=== PATIENT | female | born 1995 | race Hispanic/Latino ===

== ENCOUNTER 2018-05-07 08:15 | Emergency (ER) | payer OTHER ==
[~2018-05-07] VITALS: Ht 160 cm; Wt 51.4 kg
[2018-05-07] MEDS ORDERED: diphenhydrAMINE INJ 50MG/ML VIAL (J1200) IV ONE (09:00)
[2018-05-07] MEDS ORDERED: KETOROLAC 30 MG/ML VIAL (J1885) IV ONE (09:00)
[2018-05-07] MEDS ORDERED: ONDANSETRON 4MG/2ML VIAL (J2405) IV ONE (09:00)
[2018-05-07] MEDS ORDERED: NS 1,000 ML IV ONE (09:00)
[2018-05-07] MEDS ORDERED: SILVER SULFADIAZINE 1% CR 50 GM JAR TOP ONE (09:00)
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
[2018-05-07] MEDS ORDERED: SILV1CRE60 TOP (10:21)
[2018-05-07] MEDS ORDERED: ONDA4TAB6 PO (10:21)
[2018-05-07] MEDS ORDERED: KETO10TAB PO (10:21)
[2018-05-07] MEDS ORDERED: NORCOTAB PO (10:21)
[2018-05-07 10:39] VITALS: BP 106/60
== END 2018-05-07 10:45 | disposition home or self-care (01) ==
LOC: M ED 08:15
DX: S06.0X0A Concussion without loss of consciousness, initial encounter (principal); T22.212A Burn of second degree of left forearm, initial encounter; X12.XXXA Contact with other hot fluids, initial encounter; Y92.89 Other specified places as the place of occurrence of the external cause; F17.200 Nicotine dependence, unspecified, uncomplicated; Z88.0 Allergy status to penicillin
CPT/HCPCS: 16000; 70450; 96374; 96375; 99284; J1200; J1885; J2405

== ENCOUNTER 2018-07-04 14:08 | Emergency (ER) | payer OTHER ==
[~2018-07-04] VITALS: Ht 160 cm; Wt 57.7 kg
[~2018-07-04 14:08] MED LIST: KETO10TAB PO; NORCOTAB PO; ONDA4TAB6 PO; SILV1CRE60 TOP
[2018-07-04] MEDS ORDERED: MELA3TAB49 PO (14:14)
[2018-07-04] MEDS ORDERED: ONDANSETRON 4MG/2ML VIAL (J2405) IV ONE (14:45)
[2018-07-04 14:49] LABS: BASO % 0.3 % (0.0-1.0); EOS # 0.1 10^3/uL (0.0-0.50); EOS % 1.2 % (0.0-3.0); HEMATOCRIT 41.7 % (36.0-47.0); HEMOGLOBIN 14.4 g/dl (12.0-15.5); LYMPH # 1.5 10^3/uL (1.5-6.5); LYMPH % 21.9 % (24.0-44.0); MEAN CORPUSCULAR HEMOGLOBIN 33.9 pg (27.0-33.0); MEAN CORPUSCULAR HGB CONC 34.5 g/dl (32.0-36.5); MEAN CORPUSCULAR VOLUME 98.1 fl (80.0-96.0); MONO # 0.5 10^3/uL (0.0-0.8); MONO % 7.3 % (0.0-5.0); NEUTROPHILS # 4.7 10^3/uL (1.8-7.7); PLATELET COUNT, AUTOMATED 169 10^3/uL (150-450); RED BLOOD COUNT 4.25 10^6/uL (4.00-5.40); WHITE BLOOD COUNT 6.9 10^3/uL (4.0-10.0)
[2018-07-04 15:13] LABS: BLOOD UREA NITROGEN 16 MG/DL (7-18); CALCIUM LEVEL 8.7 MG/DL (8.5-10.1); CARBON DIOXIDE LEVEL 26 MEQ/L (21-32); CHLORIDE LEVEL 108 MEQ/L (98-107); CREATININE FOR GFR 0.91 MG/DL (0.55-1.30); GLOMERULAR FILTRATION RATE > 60.0 (>60); GLUCOSE, FASTING 93 MG/DL (70-100); POTASSIUM SERUM 4.5 MEQ/L (3.5-5.1); SODIUM LEVEL 141 MEQ/L (136-145)
[2018-07-04 15:23] LABS: HCG, SERUM QUALITATIVE NEGATIVE (NEGATIVE)
[2018-07-04] MEDS ORDERED: ISOVUE-370 76% 125ML VIAL (Q9967 PER ML) As Ordered ONE (16:12)
--- NOTE | 2018-07-04 16:35 | REP ---
Pelvic sonography: History: Nausea with pelvic pain. Left back pain. Findings: Transabdominal and transvaginal scanning are performed. Uterine dimensions are normal at 7.1 x 3.0 x 3.9 cm. Endometrial echo 0.2 cm thick. No focal uterine mass is seen. No free fluid is noted. Filled urinary bladder emerson are smooth. Normal ovaries are seen bilaterally. Right ovarian dimensions are 2.7 x 2.0 x 2.8 cm. There is a 1.1 cm follicle cyst in the right ovary. The left ovary measures 2.5 x 1.4 x 1.8 cm. It has a normal morphology. Doppler flow is normal both ovaries. Resistive indices are 0.33 on the right and 0.48 on the left. Impression: Normal pelvic sonography. Electronically Signed by Matt Joshi MD 07/04/2018 05:28 P
[2018-07-04] MEDS ORDERED: ONDA4TAB6 PO ×2 (16:57→17:19)
[2018-07-04 17:21] VITALS: BP 102/65
--- NOTE | 2018-07-04 17:25 | REP ---
REASON: Lower abdominal pain nausea and vomiting. PRIORS: None. CONTRAST: 100 mL Isovue-370. The lung bases are clear. The liver, gallbladder, spleen, pancreas, adrenal glands, and kidneys are within normal limits. The bowel loops and the mesenteries appear to be within normal limits. All seen in a limited fashion due to the lack of the administered oral bowel preparatory contrast. The abdominal aorta and periaortic regions are within normal limits. There is no free fluid or free air in the abdomen. The appendix is well visualized and shows no evidence of an abnormality. CT PELVIS: There is no free fluid or free air. There is no mass or adenopathy. The bowel loops appear to be within normal limits. Bone window technique throughout the exam shows the osseous structures to be within normal limits. IMPRESSION: CT findings are within normal limits. Electronically Signed by Hiram Johnson DO 07/04/2018 05:40 P
== END 2018-07-04 17:10 | disposition home or self-care (01) ==
LOC: M ED 14:08
DX: R11.2 Nausea with vomiting, unspecified (principal); Z88.0 Allergy status to penicillin; F17.210 Nicotine dependence, cigarettes, uncomplicated
CPT/HCPCS: 36415; 74177; 76830; 76856; 80048; 81001; 81025; 84703; 85025; 86850; 86900; 86901; 93976; 96374; 99284; J2405; Q9967

== ENCOUNTER 2019-06-08 04:52 | Emergency (ER) | payer OTHER ==
[~2019-06-08] VITALS: Ht 160 cm; Wt 67.2 kg
[~2019-06-08 04:52] MED LIST changes: +HYDR-3715 PO; +MELA3TAB49 PO; -NORCOTAB PO
[2019-06-08] MEDS ORDERED: AMIT75TA (04:57)
[2019-06-08] MEDS ORDERED: ACETAMINOPHEN 325 MG TAB PO ONE (07:00)
[2019-06-08] MEDS ORDERED: IPRATROPIUM 0.5MG/ALBUTEROL 2.5MG INH SOL UD 3ML (DUONEB)(J7620) NEB ONE (07:00)
[2019-06-08 07:11] LABS: INFLUENZA A AMPLIFICATION POSITIVE (NEGATIVE); INFLUENZA B AMPLIFICATION NEGATIVE (NEGATIVE)
[2019-06-08] MEDS ORDERED: OSELTAMIVIR PHOSPHATE 75 MG CAP (TAMIFLU) PO ONE (07:30)
[2019-06-08] MEDS ORDERED: OSEL75CA PO (07:31)
[2019-06-08 07:43] VITALS: BP 127/68
== END 2019-06-08 07:58 | disposition home or self-care (01) ==
LOC: M ED 04:52
DX: J09.X2 Influenza due to identified novel influenza A virus with other respiratory manifestations (principal); G40.909 Epilepsy, unspecified, not intractable, without status epilepticus; Z87.09 Personal history of other diseases of the respiratory system; Z79.899 Other long term (current) drug therapy; Z88.0 Allergy status to penicillin

== ENCOUNTER 2019-09-03 06:21 | Emergency (ER) | payer OTHER ==
[~2019-09-03] VITALS: Ht 160 cm; Wt 64.6 kg
[~2019-09-03 06:21] MED LIST changes: +AMIT75TA; +OSEL75CA PO
[2019-09-03] MEDS ORDERED: PREN1CHW6 PO (06:39)
[2019-09-03 07:58] LABS: BASO % 0.3 % (0.0-1.0); EOS % 0.4 % (0.0-3.0); HEMATOCRIT 39.8 % (36.0-47.0); HEMOGLOBIN 13.7 g/dl (12.0-15.5); LYMPH # 0.9 10^3/uL (1.5-5.0); LYMPH % 12.8 % (24.0-44.0); MEAN CORPUSCULAR HEMOGLOBIN 32.5 pg (27.0-33.0); MEAN CORPUSCULAR HGB CONC 34.4 g/dl (32.0-36.5); MEAN CORPUSCULAR VOLUME 94.3 fl (80.0-96.0); MONO # 0.6 10^3/uL (0.0-0.8); MONO % 8.1 % (0.0-5.0); NEUTROPHILS # 5.4 10^3/uL (1.5-8.5); PLATELET COUNT, AUTOMATED 153 10^3/uL (150-450); RED BLOOD COUNT 4.22 10^6/uL (4.00-5.40); WHITE BLOOD COUNT 6.9 10^3/uL (4.0-10.0)
[2019-09-03 08:17] LABS: BLOOD UREA NITROGEN 8 MG/DL (7-18); CALCIUM LEVEL 8.5 MG/DL (8.5-10.1); CARBON DIOXIDE LEVEL 24 MEQ/L (21-32); CHLORIDE LEVEL 106 MEQ/L (98-107); GLOMERULAR FILTRATION RATE > 60.0 (>60); GLUCOSE, FASTING 81 MG/DL (70-100); HCG, SERUM QUANTITATIVE 137244 MIU/ML; SODIUM LEVEL 137 MEQ/L (136-145)
--- NOTE | 2019-09-03 08:53 | REP ---
Emergency first trimester obstetric sonography: History: Vaginal bleeding. Findings: Transabdominal scanning demonstrates a single living intrauterine gestation. Embryonic pole measures 12 mm in crown-rump length. This corresponds with a gestational age estimate of 7 weeks 2 days. heart rate is recorded at 149 beats per minute. No subchorionic hemorrhage is appreciated. No extrauterine abnormalities observed. Impression: Viable single intrauterine gestation is 7 weeks 2 days by crown-rump length. JOSUE by sonography April 19, 2020. No complication is identified. Electronically Signed by Matt Joshi MD 09/03/2019 08:45 A
[2019-09-03] MEDS ORDERED: MACR100C43 PO (09:12)
[2019-09-03] MEDS ORDERED: METR0.7533 PV (09:35)
[2019-09-03] MEDS ORDERED: FLAG500T PO (09:39)
[2019-09-03 09:42] VITALS: BP 118/60
[2019-09-03] MEDS ORDERED: metroNIDAZOLE (FLAGYL) 500 MG TAB PO ONE (09:45)
[2019-09-03] MEDS ORDERED: METOCLOPRAMIDE 10 MG TAB PO ONE (09:45)
[2019-09-03 10:56] LABS: CHLAMYDIA DNA AMPLIFICATION POSITIVE (NEGATIVE); GC DNA AMPLIFICATION NEGATIVE (NEGATIVE)
[2019-09-03] MEDS ORDERED: AZIT500T5 PO (12:21)
--- NOTE | 2019-09-03 12:28 | ED PDOC ---
Post-Departure Follow-Up Called pt and notified of positive Chlamydia result. Sent in prescription to the pharmacy. Patient expressed understanding. Advised to continue pelvic rest. BOBBY BROOKS PA-C September 03, 2019 12:28
== END 2019-09-03 09:45 | disposition home or self-care (01) ==
LOC: M ED 06:21
DX: O23.591 Infection of other part of genital tract in pregnancy, first trimester (principal); O23.41 Unspecified infection of urinary tract in pregnancy, first trimester; O98.311 Other infections with a predominantly sexual mode of transmission complicating pregnancy, first trimester; Z3A.01 Less than 8 weeks gestation of pregnancy; Z87.440 Personal history of urinary (tract) infections; Z88.0 Allergy status to penicillin; Z79.899 Other long term (current) drug therapy

== ENCOUNTER 2019-09-28 16:34 | Emergency (ER) | payer OTHER ==
[~2019-09-28] VITALS: Ht 162.6 cm; Wt 63.9 kg
[~2019-09-28 16:34] MED LIST changes: +AZIT500T5 PO; +FLAG500T PO; +MACR100C43 PO; +METR0.7533 PV; +PREN1CHW6 PO
[2019-09-28 17:29] LABS: BASO % 0.3 % (0.0-1.0); EOS # 0.1 10^3/uL (0.0-0.5); EOS % 0.8 % (0.0-3.0); HEMATOCRIT 35.2 % (36.0-47.0); HEMOGLOBIN 12.1 g/dl (12.0-15.5); LYMPH # 1.3 10^3/uL (1.5-5.0); LYMPH % 14.4 % (24.0-44.0); MEAN CORPUSCULAR HEMOGLOBIN 32.5 pg (27.0-33.0); MEAN CORPUSCULAR HGB CONC 34.4 g/dl (32.0-36.5); MEAN CORPUSCULAR VOLUME 94.6 fl (80.0-96.0); MONO # 0.6 10^3/uL (0.0-0.8); MONO % 6.5 % (0.0-5.0); NEUTROPHILS # 7.1 10^3/uL (1.5-8.5); NEUTROPHILS % 77.5 % (36.0-66.0); PLATELET COUNT, AUTOMATED 146 10^3/uL (150-450); RED BLOOD COUNT 3.72 10^6/uL (4.00-5.40); WHITE BLOOD COUNT 9.1 10^3/uL (4.0-10.0)
[2019-09-28 17:57] LABS: BLOOD UREA NITROGEN 9 MG/DL (7-18); CALCIUM LEVEL 8.4 MG/DL (8.5-10.1); CARBON DIOXIDE LEVEL 23 MEQ/L (21-32); CHLORIDE LEVEL 110 MEQ/L (98-107); CREATININE FOR GFR 0.58 MG/DL (0.55-1.30); GLOMERULAR FILTRATION RATE > 60.0 (>60); GLUCOSE, FASTING 119 MG/DL (70-100); HCG, SERUM QUANTITATIVE 105386 MIU/ML; POTASSIUM SERUM 3.5 MEQ/L (3.5-5.1); SODIUM LEVEL 141 MEQ/L (136-145)
[2019-09-28 19:14] VITALS: BP 117/60
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
== END 2019-09-28 20:20 | disposition home or self-care (01) ==
LOC: M ED 16:34
DX: O9A.311 Physical abuse complicating pregnancy, first trimester (principal); O20.8 Other hemorrhage in early pregnancy; Z3A.10 10 weeks gestation of pregnancy; Z79.899 Other long term (current) drug therapy; Z88.0 Allergy status to penicillin

== ENCOUNTER 2019-12-30 14:51 | Outpatient (CLI) | payer OTHER ==
[~2019-12-30] VITALS: Ht 160 cm; Wt 71.2 kg
[~2019-12-30 14:51] MED LIST changes: +magnesium
[2019-12-30] MEDS ORDERED: MAPA500T2 PO (15:13)
[2019-12-30] MEDS ORDERED: B-COTAB10 PO (15:22)
--- NOTE | 2019-12-30 16:09 | IPNPDOC ---
Obstetrical Progress Note Date of Service Dec 30, 2019 Subjective 22yo at 24+1 presents to L+D for back pain that is constant and started 2d ago but is worse today. It is worse when she needs to or is urinating. She endorsed blood in her urine, she is unsure if it is vaginal bleeding. She denied other symptoms like n/v/d, cp, sob, [place], visual changes, abd pain, f/c. Assessment Heart Rate (FHR): 135 Variability: Moderate Accelerations: Positive Decelerations: None Heart Rate Tracing: Category I Tocometer Contractions: No Sterile Vaginal Examination Dilation: None Station: -3 Cervical Consistency: Firm Cervical Position: Posterior Assessment and Plan Additional Comments 22yo at 24+1 presents to +D for back pain associated with urination and vaginal bleeding vs blood in her urine. VS normal. Doptones 135bpm. No contractions. On exam she had thick white vaginal discharge, her cervix was friable, her SVE was C/T/H. KITTY/WP were positive for pseudohyphae. UA was contaminated but still had a significant amount of WBC and bacteria. Given her urinary frequency and pain association with voiding will treat for UTI. UCx is pending. [facility] - fluconazole given while in triage for vaginal candidiasis - macrobid prescribed for UTI - return precautions given for non-resolution of symptoms, worsening of symptoms, fever, or other concerning symptoms - routine OB return precautions given - patient otherwise to follow up at her [facility] Physical Examination no CVA tenderness General Exam: Positive: Alert, No Acute Distress ENT EXAM: Positive: Atraumatic Neck Exam: Positive: Supple Chest Exam: Positive: Other (no increased WOB) Heart Exam: Positive: Rate Normal Abdomen Exam: Positive: Soft (gravid, non-tender) Female Exam: Positive: Nl Ext Genitalia, Normal Cervical Exam Psych Exam: Positive: Mental status NL SANTINO SAMANIEGO DO Dec 30, 2019 16:09
[2019-12-30] MEDS ORDERED: FLUCONAZOLE 50MG TABLET PO ONE (16:15)
[2019-12-30 16:30] LABS: APPEARANCE, URINE HAZY (CLEAR); BACTERIA, URINE AUTO 1+ (NEGATIVE); BILIRUBIN, URINE AUTO NEGATIVE (NEGATIVE); BLOOD, URINE BLOOD NEGATIVE (NEGATIVE); COLOR, URINE YELLOW (YELLOW); GLUCOSE, URINE (UA) AUTO NEGATIVE (NEGATIVE); KETONE, URINE AUTO NEGATIVE (NEGATIVE); LEUKOCYTE ESTERASE, URINE AUTO 2+ (NEGATIVE); MUCUS, URINE SMALL (NEGATIVE); NITRITE, URINE AUTO NEGATIVE (NEGATIVE); PROTEIN, URINE AUTO NEGATIVE (NEGATIVE); RBC, URINE AUTO 2 /HPF (0-3); SPECIFIC GRAVITY URINE AUTO 1.014 (1.002-1.035); SQUAMOUS EPITHELIAL CELL UR AU 4 /HPF (0-6); UROBILINOGEN, URINE AUTO 0.2 mg/dL (0.0-2.0); WBC, URINE AUTO 10 /HPF (0-3)
[2019-12-30 18:07] LABS: CHLAMYDIA DNA AMPLIFICATION NEGATIVE (NEGATIVE); GC DNA AMPLIFICATION NEGATIVE (NEGATIVE)
== END 2019-12-30 17:08 | disposition home or self-care (01) ==
LOC: M LDO 14:51
PROVIDERS: ATTEND Obstetrics & Gynecology
DX: O23.42 Unspecified infection of urinary tract in pregnancy, second trimester (principal); B37.3 Candidiasis of vulva and vagina
CPT/HCPCS: 81001; 87086; 87661; G0378; G0463

== ENCOUNTER 2020-03-04 11:47 | Outpatient (CLI) | payer OTHER ==
[~2020-03-04] VITALS: Ht 160 cm; Wt 76.5 kg
[~2020-03-04 11:47] MED LIST changes: +B-COTAB10 PO; +MAPA500T2 PO
[2020-03-04 12:00] VITALS: BP 104/71
== END 2020-03-04 12:40 | disposition home or self-care (01) ==
LOC: M LDO 11:47
PROVIDERS: ATTEND Obstetrics & Gynecology
DX: O26.893 Other specified pregnancy related conditions, third trimester (principal); R10.9 Unspecified abdominal pain; Z3A.33 33 weeks gestation of pregnancy; Z88.0 Allergy status to penicillin; Z88.6 Allergy status to analgesic agent; Z91.018 Allergy to other foods
CPT/HCPCS: 59025; G0378; G0463

== ENCOUNTER 2020-06-26 14:56 | Emergency (ER) | payer OTHER ==
[~2020-06-26] VITALS: Ht 160 cm; Wt 62.7 kg
[2020-06-26 16:26] LABS: BASO % 0.5 % (0.0-1.0); EOS # 0.2 10^3/uL (0.0-0.5); EOS % 3.5 % (0.0-3.0); HEMATOCRIT 37.6 % (36.0-47.0); HEMOGLOBIN 12.9 g/dl (12.0-15.5); LYMPH # 1.6 10^3/uL (1.5-5.0); LYMPH % 23.8 % (24.0-44.0); MEAN CORPUSCULAR HEMOGLOBIN 32.8 pg (27.0-33.0); MEAN CORPUSCULAR HGB CONC 34.3 g/dl (32.0-36.5); MEAN CORPUSCULAR VOLUME 95.7 fl (80.0-96.0); MONO # 0.5 10^3/uL (0.0-0.8); MONO % 7.2 % (2.0-8.0); NEUTROPHILS # 4.3 10^3/uL (1.5-8.5); NEUTROPHILS % 64.8 % (36.0-66.0); PLATELET COUNT, AUTOMATED 154 10^3/uL (150-450); RED BLOOD COUNT 3.93 10^6/uL (4.00-5.40); WHITE BLOOD COUNT 6.7 10^3/uL (4.0-10.0)
[2020-06-26 16:56] LABS: ALBUMIN 3.6 GM/DL (3.2-5.2); ALT/SGPT 25 U/L (12-78); BILIRUBIN,DIRECT 0.1 MG/DL (0.0-0.2); BILIRUBIN,TOTAL 0.3 MG/DL (0.2-1.0); BLOOD UREA NITROGEN 17 MG/DL (7-18); CALCIUM LEVEL 8.8 MG/DL (8.5-10.1); CARBON DIOXIDE LEVEL 26 MEQ/L (21-32); CHLORIDE LEVEL 110 MEQ/L (98-107); CREATININE FOR GFR 0.91 MG/DL (0.55-1.30); GLOMERULAR FILTRATION RATE > 60.0 (>60); GLUCOSE, FASTING 97 MG/DL (70-100); HCG, SERUM QUANTITATIVE < 1.0 MIU/ML; LIPASE 56 U/L (73-393); POTASSIUM SERUM 3.5 MEQ/L (3.5-5.1); SODIUM LEVEL 142 MEQ/L (136-145); TOTAL PROTEIN 6.3 GM/DL (6.4-8.2)
[2020-06-26] MEDS ORDERED: DICYCLOMINE 10 MG CAP PO ONE (17:10)
[2020-06-26] MEDS ORDERED: ISOVUE-370 76% 100ML VIAL As Ordered ONE (17:16)
--- NOTE | 2020-06-26 18:03 | REPVR ---
PROCEDURE INFORMATION: Exam: CT Abdomen And Pelvis With Contrast Exam date and time: 06/26/2020 5:20 PM Age: 24 years old Clinical indication: Other: Rectal bleeding, vaginal bleeding; Additional info: Rectal bleeding, vaginal bleeding x 10days post iud TECHNIQUE: Imaging protocol: Computed tomography of the abdomen and pelvis with contrast. Radiation optimization: All CT scans at this facility use at least one of these dose optimization techniques: automated exposure control; mA and/or kV adjustment per patient size (includes targeted exams where dose is matched to clinical indication); or iterative reconstruction. Contrast material: ISOVUE 370; Contrast volume: 100 ml; Contrast route: INTRAVENOUS (IV); COMPARISON: CT ABD/PEL W/IV CONTRAST ONLY 07/04/2018 4:08 PM FINDINGS: Liver: Normal. No mass. Gallbladder and bile ducts: Normal. No calcified stones. No ductal dilation. Pancreas: Normal. No ductal dilation. Spleen: 7 mm splenic hyperenhancing lesion, not previously identified. Adrenal glands: Normal. No mass. Kidneys and ureters: Normal. No hydronephrosis. Stomach and bowel: There is mildly increased stool noted in the ascending and proximal transverse colon. Appendix: The vermiform appendix is normal. Intraperitoneal space: Unremarkable. No free air. No significant fluid collection. Vasculature: Unremarkable. No abdominal aortic aneurysm. Lymph nodes: No enlarged lymph nodes. Urinary bladder: The urinary bladder is decompressed and difficult to assess. Reproductive: The uterus contains a Mirena IUD. Bones/joints: Unremarkable. No acute fracture. Soft tissues: Unremarkable. Other findings: No active gastrointestinal bleeding identified. IMPRESSION: 1. No active gastrointestinal bleeding identified. 2. Small splenic hyperenhancing lesion, not previously identified. This likely represents a benign lesion such as a hemangioma. Follow-up may be helpful, however. 3. Intrauterine device. 4. Mild abdominal colonic constipation. Electronically signed by: Corbin Deluca On 06/26/2020 18:04:28 PM
[2020-06-26] MEDS ORDERED: COLA100C5 PO (19:27)
[2020-06-26] MEDS ORDERED: ANUS25SU PR (19:27)
--- NOTE | 2020-06-26 19:37 | ED PDOC ---
Post-Departure Follow-Up ft [facility] fel[facility] faxed formal read of ct abd/p for fu Narciso Amato MD Jun 26, 2020 19:37
[2020-06-26 19:43] VITALS: BP 132/81
== END 2020-06-26 19:43 | disposition home or self-care (01) ==
LOC: M ED 14:56
DX: R10.9 Unspecified abdominal pain (principal); N93.9 Abnormal uterine and vaginal bleeding, unspecified; K62.5 Hemorrhage of anus and rectum; K59.00 Constipation, unspecified; Z87.891 Personal history of nicotine dependence; Z97.5 Presence of (intrauterine) contraceptive device; Z88.0 Allergy status to penicillin; Z88.5 Allergy status to narcotic agent; Z91.018 Allergy to other foods; Z91.89 Other specified personal risk factors, not elsewhere classified
CPT/HCPCS: 74177; 80048; 80076; 81001; 83690; 84702; 85025; 86850; 86900; 86901; 99284; Q9967